=== PATIENT | male | born 2000 | race Caucasian/White ===

== ENCOUNTER 2021-07-09 23:37 | Emergency (ER) | payer MEDICAID, SELFPAY ==
--- NOTE | ~2021-07-09 | CT_ITS ---
EXAMINATION: CT brain wo con DATE: 07/10/2021 00:12 INDICATION: Seizure TECHNIQUE: Computed tomography (CT) of the head was performed without intravenous contrast. The mA wa s adjusted according to patient size. Iterative reconstruction technique was employed. Exam dose: 68 1.00 mGy-cm total exam DLP. COMPARISON: None FINDINGS: No intracranial mass lesion or hemorrhage or cerebrovascular accident, encephalomalacia, mi dline shift or mass effect effect. Normal keating-white matter differentiation. Normal ventricular size. No subdural or epidural hematoma. No fracture or bone destruction of the cranial vault. Small mucus retention cyst or polyp in the posterior superior left maxillary sinus and lateral wall o f the right sphenoid sinus. The paranasal sinuses and mastoid air cells are otherwise normally develo ped and aerated. No fracture or bone destruction of the cranial vault. IMPRESSION: No intracranial abnormality Reviewed, dictated and finalized at [facility] Reviewed, dictated and finalized at [facility]. US REP IMPRESSION: No intracranial abnormality
[2021-07-09 23:40] VITALS: BP 122/56; PULSE 56; RESP 16; TEMP 36.7; O2SAT 100
--- NOTE | 2021-07-09 23:51 | ECG_ITS ---
Measurements Intervals [place] Rate: 58 P: 78 NC: 136 QRS: 76 QRSD: 109 T: 68 QT: 384 QTc: 379 Interpretive Statements SINUS BRADYCARDIA POSSIBLE LEFT ATRIAL ENLARGEMENT INCOMPLETE RIGHT BUNDLE BRANCH BLOCK BASELINE ARTIFACT- II, III, AVR, AVF, V1, V3-V6 BORDERLINE ECG Electronically Signed On 07-10-2021 6:21:45 [employer]TACT [employer]TER by Alfredo Aguilar D.O.
[2021-07-09 23:52] VITALS: O2SAT 96
--- NOTE | 2021-07-10 | PC.NURSE ---
Patient taken to CT via stretcher.
[2021-07-10 00:25] LABS: Basophils Absolute Auto 0.1 K/mm3 (0.0-0.1); Basophils Percent Auto 0.6 % (0.2-1.2); Eosinophils Absolute Auto 0.1 K/mm3 (0-0.3); Eosinophils Percent Auto 0.3 % (0-4.4); Hematocrit 41.6 % (42.0-52.0); Hemoglobin 14.4 g/dL (14.0-18.0); Immature Granulocyte Absolute 0.09 K/mm3 (0.00-0.031); Immature Granulocyte Percent A 0.6 % (0-0.5); Lymphocytes Absolute Auto 2.51 K/mm3 (0.9-3.2); Lymphocytes Percent Auto 16.1 % (18.3-44.2); Mean Corpuscular HGB Conc 34.6 g/dl (32-36); Mean Corpuscular Volume 92.4 fl (80-100); Mean Platelet Volume 11.5 fl (7.4-10.4); Monocytes Percent Auto 6.4 % (2.6-8.5); Neutrophils Absolute Auto 11.8 K/mm3 (1.3-6.7); Platelet Count Result 168 k/mm3 (150-375); Red Cell Distribution Width 13.2 % (11.5-14.5); White Blood Count 15.6 K/mm3 (4.5-10.0)
[2021-07-10 00:37] LABS: Alanine Aminotransferase 13 U/L (4-50); Albumin Level 4.3 g/dL (3.5-5.1); Alkaline Phosphatase 46 U/L (38-126); Anion Gap 10 mmol/L (8-16); Aspartate Amino Transferase 19 U/L (17-59); Bilirubin,Total 2.5 mg/dL (0.2-1.3); Blood Urea Nitrogen 9 mg/dL (9-20); Calcium 9.7 mg/dL (8.4-10.2); Carbon Dioxide 25 mmol/L (22-30); Chloride 103 mmol/L (98-107); Estimated CRCL calculation 117 ml/min; Estimated Glomerular Filt Rate > 60; Glucose 96 mg/dL (65-110); Potassium 4.2 mmol/L (3.4-5.0); Sodium 138 mmol/L (137-145)
[2021-07-10 00:40] LABS: Ethanol < 10 mg/dL (<10)
[2021-07-10 00:54] LABS: Add Urine Microscopic? NO; Appearance Urine Clear (Clear); Bilirubin Urine Negative (Negative); Blood Urine Negative (Negative); Color Urine Yellow (Yellow); Glucose Urine UA Negative (Negative); Ketones Urine Negative (Negative); Leukocyte Esterase Ur Negative LEU/UL (Negative); Nitrate Urine Negative (Negative); Protein Urine Negative (Negative); Specific Grav Ur 1.014 (1.001-1.035); Urobilinogen Urine Negative mg/dL (<2.0)
[2021-07-10 01:07] LABS: Amphetamine Screen Urine Negative (Negative); Barbiturate Screen Urine Negative (Negative); Benzodiazepines Screen Urine Negative (Negative); Cannabinoid Screen Urine Positive (Negative); Cocaine Screen Urine Negative (Negative); Methadone Screen Urine Negative (Negative); Opiate Screen Urine Negative (Negative); Phencyclidine Screen Urine Negative (Negative)
--- NOTE | 2021-07-10 01:10 | ED.SEIZURE ---
HPI - Seizure General Chief Complaint: Seizure Stated Complaint: seizure w no known seizure hx, head injury Time Seen by Provider: 07/09/21 23:50 Source: patient and family Mode of arrival: ambulatory Limitations: no limitations History of Present Illness HPI Narrative: 21-year-old otherwise healthy was brought in by his fianc?e with complaints of possible seizure activity. Patient was sitting on the couch playing video games fell off the sofa his fianc?e was present at bedtime states that his eyes rolled back and his body was shaking for approximately 2-1/2-minute. Patient prior to the event had no chest pain or palpitations he states that he felt a nelson in the body and later passed out . Denies any alcohol or drug use. MD complaint: possible seizure Description of Episode: loss of consciousness -: minutes(s) (2.5) Witnessed: Yes - by Other (Fianc?) Trauma: No Seizure History: No Place: home Possible Precipitating Event: none Associated symptoms: denies other symptoms Treatments prior to arrival: none Related Data Home Medications Medication Instructions Recorded Confirmed No Home Medications 07/09/21 07/09/21 Allergies Allergy/AdvReac Type Severity Reaction Status Date / Time No Known Allergies Allergy Verified 07/09/21 23:46 Review of Systems Review of Systems: All systems reviewed & are unremarkable except as noted in HPI and below Constitutional: Constitutional: Reports no additional constitutional complaints Eyes: Eyes: Reports no additional eye complaints ENT: Reports system reviewed and no additional complaints, except as documented Cardiovascular: Cardiovascular: Reports no additional cardiovascular complaints Respiratory: Respiratory: Reports no additional respiratory complaints Gastrointestinal: Gastrointestinal: Reports no additional gastrointestinal complaints Musculoskeletal: Musculoskeletal: Reports no additional musculoskeletal complaints Integumentary/Breasts: Skin/Breast: Reports system reviewed and no additional complaints, except as docu Exam Narrative: GENERAL: Well-appearing, well-nourished, and in no acute distress. HEAD: Normocephalic, atraumatic. EYES: PERRLA and EOMI. ENT: Nares clear, no rhinorrhea or epistaxis. Mucous membranes moist. NECK: Supple. CHEST: Clear to auscultation. No respiratory distress. HEART: Regular rate and rhythm. No murmur heard. Normal peripheral pulses. ABDOMEN: Soft, nontender, nondistended, normal active bowel sounds. EXTREMITIES: Normal range of motion. No edema. SKIN: Warm, dry, no rash. NEURO: No focal deficits. Alert and oriented x3. PSYCH: Normal mood and affect. Course Course Emergency Course: Inform patient and his fianc?e about his lab work, CT findings advised him no driving till he is okay by neurologist. Vital Signs Vital signs: Vital Signs Temperature 36.7 C 07/09/21 23:40 Pulse Rate 56 L 07/09/21 23:40 Respiratory Rate 16 07/09/21 23:40 Blood Pressure 122/56 L 07/09/21 23:40 Pulse Oximetry 100 07/09/21 23:40 Temperature 36.7 C 07/09/21 23:40 Pulse Rate 56 L 07/09/21 23:40 Respiratory Rate 16 07/09/21 23:40 Blood Pressure 122/56 L 07/09/21 23:40 Pulse Oximetry 96 07/09/21 23:52 MDM - Seizure Differential Diagnosis Differential diagnosis: Likely generalized seizure and new onset seizure Medical Records Attestation: I reviewed the patient's medical records. Lab Data Result diagrams: 07/10/21 00:13 07/10/21 00:13 Labs: Lab Results 07/10/21 07/10/21 07/10/21 Range/Units 00:13 00:13 00:13 WBC 15.6 H (4.5-10.0) K/mm3 RBC 4.50 L (4.6-6.20) M/mm3 Hgb 14.4 (14.0-18.0) g/dL Hct 41.6 L (42.0-52.0) % MCV 92.4 (80-100) fl MCH 32.0 (26-34) pg MCHC 34.6 (32-36) g/dl RDW 13.2 (11.5-14.5) % Plt Count 168 (150-375) k/mm3 MPV 11.5 H (7.4-10.4) fl Immature Gran % (Auto) 0.6 H (0-0.5) % Neut % (Auto) 76.0 H (
[2021-07-10 01:32] VITALS: BP 103/59; PULSE 59; RESP 16; O2SAT 100
== END 2021-07-10 01:35 | disposition home or self-care (01) ==
PROVIDERS: Emergency Provider Family Medicine
DX: R56.9 Unspecified convulsions (principal); R00.1 Bradycardia, unspecified; R94.31 Abnormal electrocardiogram [ECG] [EKG]
CPT/HCPCS: 36415; 70450; 80053; 80307; 81003; 85025; 93005; 99284